=== PATIENT | female | born 1990 | race Caucasian/White ===

== ENCOUNTER → 2016-11-04 | Outpatient (CLI) | payer OTHER ==
--- NOTE | 2016-11-05 03:08 | REP ---
Clinical: Anatomical evaluation. Comparison: 10/08/2016 . Findings: Examination demonstrates a single live intrauterine in cephalic presentation. motion is identified by technologist. Placenta is noted anteriorly and grade zero without evidence for placenta previa or abruption. Amniotic fluid volume is normal. Cervix measures 3.2 cm in length and appears closed. No evidence for nuchal cord. Gestational age by LMP 24 weeks 0 days with PATRICIA 02/24/2017 . Gestational age by current measurements 24 weeks 4 days with PATRICIA 02/20/2017 . FHR equals 133 beats per minute. Estimated weight 677 grams ( 52nd percentile). Anatomical assessment demonstrates normal structures including cranium, choroid plexus, cavum, cerebellum/posterior fossa, facial features, lungs, four-chamber heart/ventricular outflow tracts, diaphragm, stomach, cord insertion/three-vessel cord, kidneys/bladder, and extremities. Impression: Single live intrauterine in cephalic presentation demonstrating appropriate interval growth. In conjunction with prior examination anatomical assessment is complete and normal. Signed by Julian Estes MD 11/05/2016 03:00 A
== END ==
LOC: M RAD 10:58
PROVIDERS: ATTEND Obstetrics & Gynecology
DX: Z36 Encounter for antenatal screening of mother (principal); Z3A.24 24 weeks gestation of pregnancy

== ENCOUNTER → 2016-12-04 | Outpatient (CLI) | payer OTHER ==
[2016-12-04 15:18] LABS: MEAN CORPUSCULAR HGB CONC 34.5 g/dl (32.0-36.5); MEAN CORPUSCULAR VOLUME 95.7 fl (80.0-96.0); RED CELL DISTRIBUTION WIDTH 13.1 % (11.5-14.5)
[2016-12-05 08:16] LABS: WHITE BLOOD COUNT 9.6 K/mm3 (4.0-10.0)
== END ==
LOC: M LAB 13:30
PROVIDERS: ATTEND Obstetrics & Gynecology
DX: Z34.02 Encounter for supervision of normal first pregnancy, second trimester (principal)

== ENCOUNTER → 2016-12-19 | Outpatient (REF) | payer OTHER | LOC: M SFHCLERA 10:39 | PROVIDERS: ATTEND Physician Assistant | DX: J02.9 Acute pharyngitis, unspecified (principal) ==

== ENCOUNTER → 2017-01-15 | Outpatient (CLI) | payer OTHER ==
[~2017-01-15] MED LIST: PRENTAB9 PO
[2017-01-15 17:46] LABS: ALT/SGPT 89 U/L (12-78); AST/SGOT 53 U/L (15-37); BILIRUBIN,TOTAL 0.8 MG/DL (0.2-1.0); CREATININE FOR GFR 0.57 MG/DL (0.55-1.02); GLOMERULAR FILTRATION RATE > 60.0 (>60); URIC ACID 5.5 MG/DL (2.6-6.0)
[2017-01-15 18:01] LABS: MEAN CORPUSCULAR HEMOGLOBIN 34.1 pg (27.0-33.0); MEAN CORPUSCULAR VOLUME 93.3 fl (80.0-96.0); RED CELL DISTRIBUTION WIDTH 12.7 % (11.5-14.5); WHITE BLOOD COUNT 9.6 K/mm3 (4.0-10.0)
[2017-01-15 20:29] LABS: MEAN CORPUSCULAR HGB CONC 34.4 g/dl (32.0-36.5)
== END ==
LOC: M LAB 16:35
PROVIDERS: ATTEND Advanced Practice Midwife
DX: R03.0 Elevated blood-pressure reading, without diagnosis of hypertension (principal)

== ENCOUNTER 2017-01-16 10:46 | Inpatient (IN) | payer OTHER ==
[~2017-01-16] VITALS: Ht 162.6 cm; Wt 100.0 kg
[2017-01-16] MEDS ORDERED: ONDANSETRON 4MG/2ML VIAL (J2405) IV PRN (11:30)
[2017-01-16] MEDS ORDERED: PRENTAB9 PO (11:35)
[2017-01-16] MEDS: LR 1,000 ML IV SCH ×2 (12:23→21:36)
[2017-01-16 12:48] LABS: BASO % 0.3 % (0.0-1.0); EOS # 0.1 K/mm3 (0.0-0.50); EOS % 1.4 % (0.0-3.0); LARGE UNSTAINED CELL # 0.1 K/mm3 (0.0-0.4); LARGE UNSTAINED CELL % 1.7 % (0.0-4.0); LYMPH # 1.5 K/mm3 (1.5-6.5); LYMPH % 18.7 % (24.0-44.0); MEAN CORPUSCULAR HEMOGLOBIN 33.1 pg (27.0-33.0); MEAN CORPUSCULAR VOLUME 94.8 fl (80.0-96.0); MONO # 0.5 K/mm3 (0.0-0.8); MONO % 5.9 % (0.0-5.0); NEUTROPHILS # 5.8 K/mm3 (1.8-7.7); PLATELET COUNT, AUTOMATED 114 k/mm3 (150-450); RED CELL DISTRIBUTION WIDTH 12.9 % (11.5-14.5)
[2017-01-16 12:49] VITALS: BP 102/55
[2017-01-16 13:25] LABS: ALBUMIN 2.7 GM/DL (3.2-5.2); ALBUMIN/GLOBULIN RATIO 0.75 (1.00-1.93); ALKALINE PHOSPHATASE 131 U/L (45-117); ALT/SGPT 101 U/L (12-78); AMYLASE 47 U/L (25-115); ANION GAP 7 MEQ/L (8-16); AST/SGOT 63 U/L (15-37); BILIRUBIN,TOTAL 0.4 MG/DL (0.2-1.0); BLOOD UREA NITROGEN 4 MG/DL (7-18); CARBON DIOXIDE LEVEL 25 MEQ/L (21-32); CHLORIDE LEVEL 108 MEQ/L (98-107); GLOMERULAR FILTRATION RATE > 60.0 (>60); GLUCOSE, FASTING 104 MG/DL (70-105); POTASSIUM SERUM 3.8 MEQ/L (3.5-5.1); SODIUM LEVEL 140 MEQ/L (136-145); TOTAL PROTEIN 6.3 GM/DL (6.4-8.2); URIC ACID 5.6 MG/DL (2.6-6.0)
[2017-01-16 14:30] VITALS: BP 107/58
[2017-01-16] MEDS ORDERED: BICITRA 30ML SOLN UDC PO ONE (17:15)
[2017-01-16] MEDS ORDERED: BETAMETHASONE SOLUSPAN 6MG/ML INJ 5ML (J0702) IM SCH (17:45)
--- NOTE | 2017-01-16 18:13 | HPEPDOC ---
Obstetrical History & Physical General Date of Admission Primary Care Physician: Gaetano Briceño DO History of Present Illness Patient is a 26-year-old female who is a at 34 weeks 3 days gestation with an PATRICIA of 02/24/2017 aced off of a first trimester ultrasound. She [facility] care in her first [facility]. Her has been uncomplicated up until 34 weeks' gestation when she presented to the office with a blood pressure of 144/82 and symptoms of epigastric pain mainly on the left side along with headaches. Patient also reported that she had been vomiting for the last 2-3 days and also had consistent nausea. At that point preeclamptic labs along with a 24-hour urine was done for patient and she reported back to the office 2 days later with a normal blood pressure but abnormal labs. Patient was sent to labor and delivery for further testing. She still continues to complain of left upper quadrant pain along with headaches. She denies leaking of fluid, vaginal bleeding, or contractions. Reports active movement. Chief Complaint: Other (left upper quadrant pain, nausea, headaches) Information Provided By: Patient Age: 26 : 1 Livin Care Care: Good Care Dating Final EDC: February 24, 2017 Final EDC by: 1st trimester (US) LMP: Apr 06, 2016 EGA at Admission: 34.3 Antepartum Course Height (inches): 64 Pre- weight (lbs.): 209 Admission Weight (lbs.): 220 Change in Weight (lbs.): 11 Past Medical History Past Obstetrical History : Past Obstetrical History: Primgravida LAWN CARE SPECIALIST History: Other (PCOS.) Past Medical History Medical History Varicella-zoster child. Surgical History: Other (surgery and right eye is child.) Family History Significant Family History: Hyperlipidemia Social History Marital Status: Single Family situation: Spouse/partner home Psychosocial History: No pertinent psych hx * Smoker: former Smoker Alcohol: other (history of alcohol abuse) Drugs: denies, marijuana (history of use) Abuse Violence Screening Have you been hit/kicked/slapp: No Have you been sexually assault: No Allergies Coded Allergies: Latex (Verified Allergy, Unknown, 07/09/14) Medications Scheduled Multivitamins/ ( 27-0.8 mg) 1 Tab Tab 1 TAB PO DAILY Physical Examination Physical Examination GENERAL: Alert and oriented times three. BREAST: . ABDOMEN: Gravid and non-tender to touch. FETUS: Is vertex (VTX) by sterile vaginal examination (SVE), fetus is vertex ( VTX) by David. HEART RATE: Regular rate and rhythm. LUNGS: Clear to auscultation (CTA). EXTREMITIES: No edema. No clonus. Deep tendon reflexes (DTRs) + [3]. Vital Signs/I&O Vital Signs Date Time Temp Pulse Resp B/P Pulse Ox O2 Delivery O2 Flow Rate FiO2 01/16/17 14:30 71 18 107/58 01/16/17 11:27 99.2 Room Air Laboratory Data 24H LABS Laboratory Tests 2 01/16/17 12:25: Blood Urea Nitrogen 4L, Creatinine 0.60, Sodium Level 140, Potassium Level 3.8, Chloride Level 108H, Carbon Dioxide Level 25, Calcium Level 9.0, Aspartate Amino Transf (AST/SGOT) 63H, Alanine Aminotransferase (ALT/SGPT) 101H, Alkaline Phosphatase 131H, Total Bilirubin 0.4, Uric Acid 5.6, Total Protein 6.3L, Albumin 2.7L, Albumin/Globulin Ratio 0.75L, Amylase Level 47, Anion Gap 7L, White Blood Count 8.0, Red Blood Count 4.30, Hemoglobin 14.3, Hematocrit 40.8, Mean Corpuscular Volume 94.8, Mean Corpuscular Hemoglobin 33.1H, Mean Corpuscular Hemoglobin Concent 35.0, Red Cell Distribution Width 12.9, Platelet Count 114L, Neutrophils (%) (Auto) 72.0H, Lymphocytes (%) (Auto) 18.7L, Monocytes (%) (Auto) 5.9H, Eosinophils (%) (Auto) 1.4, Basophils (%) (Auto) 0.3 , Neutrophils # (Auto) 5.8, Lymphocytes # (Auto) 1.5, Monocytes # (Auto) 0.5, Eosinophils # (Auto) 0.1, Basophils # (Auto) 0.0, Glomerular Filtration Rate > 60.0, Large Unclassified Cells # 0.1, Large Unclassified Cells % 1.7, Lipase 116 , Urine Random Creatinine 63.7, Urine Random Total Protein 7.7 CBC/BMP Laboratory Tests 01/16/17 12:25 Calcium Level 9.0, Aspartate Amino Transf (AST/SGOT) 63 H, Alanine Aminotransferase (ALT/SGPT) 101 H, Alkaline Phosphatase 131 H, Total Bilirubin 0.4, Uric Acid 5.6, Total Protein 6.3 L, Albumin 2.7 L, Red Blood Count 4.30, Mean Corpuscular Volume 94.8, Mean Corpuscular Hemoglobin 33.1 H, Mean Corpuscular Hemoglobin Concent 35.0, Red Cell Distribution Width 12.9, Neutrophils (%) (Auto) 72.0 H, Lymphocytes (%) (Auto) 18.7 L, Monocytes (%) ( Auto) 5.9 H, Eosinophils (%) (Auto) 1.4, Basophils (%) (Auto) 0.3, Neutrophils # (Auto) 5.8, Lymphocytes # (Auto) 1.5, Monocytes # (Auto) 0.5, Eosinophils # ( Auto) 0.1, Basophils # (Auto) 0.0 Urine Culture: No Growth Pertinent Laboratoy Data Blood Type: O+ RBC Antibody Screen: Negative HIV: Negative Hepatitis B: Negative Rapid Plasma Reagin: Nonreactive Rubella: Immune Chlamydia/Gonorrhea: Negative Group B Streptococcus: Unknown Quad Screen Test: Declined Cystic Fibrosis: Declined Glucose Tolerance Test: 95 (PLT: 136) Steroid Therapy Steroid Therapy: Yes Date #1: Jan 16, 2017 Date #2: Jan 17, 2017 Tocometer Multi-drug resistant Organism: No history of MDRO Assessment/Plan Assessment IUP at 34 weeks 3 days gestation Thrombocytopenia Abnormal liver enzymes Category 1 heart rate tracing Plan Patient to be 23 hour observation. IV started with lactated Ringer's at 125. Out of bed as tolerated. Regular diet. Labs as ordered. Labs and information reviewed with Dr. Briceño. Plan is to continue observation with patient and repeat labs in 24 hours. We'll start betamethasone IM injections 1 now and 1 in 24 hours. GBS obtained. NST every 8 hours. Vital signs every 4 hours. DENILSON BARBA CNM Jan 16, 2017 18:06
[2017-01-16 20:05] VITALS: BP 133/75
[2017-01-16] MEDS ORDERED: ACETAMINOPHEN 500 MG TAB PO PRN (22:30)
[2017-01-16] MEDS: FAMOTIDINE 20 MG TAB PO SCH (22:50)
[2017-01-17] VITALS (7 sets, daily range): BP systolic 110–137; BP diastolic 51–85
[2017-01-17] MEDS: LR 1,000 ML IV SCH ×3 (03:21→18:33)
[2017-01-17] MEDS ORDERED: BETAMETHASONE SOLUSPAN 6MG/ML INJ 5ML (J0702) IM SCH (08:00)
[2017-01-17 08:38] LABS: ALBUMIN 2.3 GM/DL (3.2-5.2); ALBUMIN/GLOBULIN RATIO 0.68 (1.00-1.93); ALKALINE PHOSPHATASE 110 U/L (45-117); ALT/SGPT 100 U/L (12-78); ANION GAP 10 MEQ/L (8-16); AST/SGOT 51 U/L (15-37); BILIRUBIN,TOTAL 0.5 MG/DL (0.2-1.0); BLOOD UREA NITROGEN 4 MG/DL (7-18); CARBON DIOXIDE LEVEL 21 MEQ/L (21-32); CHLORIDE LEVEL 111 MEQ/L (98-107); CREATININE FOR GFR 0.45 MG/DL (0.55-1.02); GLOMERULAR FILTRATION RATE > 60.0 (>60); GLUCOSE, FASTING 99 MG/DL (70-105); POTASSIUM SERUM 3.8 MEQ/L (3.5-5.1); SODIUM LEVEL 142 MEQ/L (136-145); TOTAL PROTEIN 5.7 GM/DL (6.4-8.2); URIC ACID 5.2 MG/DL (2.6-6.0)
[2017-01-17 08:40] LABS: MEAN CORPUSCULAR HEMOGLOBIN 33.2 pg (27.0-33.0); MEAN CORPUSCULAR HGB CONC 35.3 g/dl (32.0-36.5); MEAN CORPUSCULAR VOLUME 94.1 fl (80.0-96.0); RED CELL DISTRIBUTION WIDTH 12.6 % (11.5-14.5); WHITE BLOOD COUNT 11.6 K/mm3 (4.0-10.0)
[2017-01-17] MEDS: FAMOTIDINE 20 MG TAB PO SCH ×2 (09:19→21:08)
[2017-01-18] VITALS (10 sets, daily range): BP systolic 103–124; BP diastolic 55–70
[2017-01-18 06:31] LABS: MEAN CORPUSCULAR HEMOGLOBIN 33.3 pg (27.0-33.0); MEAN CORPUSCULAR HGB CONC 34.7 g/dl (32.0-36.5); MEAN CORPUSCULAR VOLUME 95.8 fl (80.0-96.0); WHITE BLOOD COUNT 10.8 K/mm3 (4.0-10.0)
[2017-01-18] MEDS: LR 1,000 ML IV SCH ×3 (06:39→19:30)
[2017-01-18] MEDS: FAMOTIDINE 20 MG TAB PO SCH ×2 (07:33→23:59)
--- NOTE | 2017-01-18 08:57 | REP ---
GALLBLADDER ULTRASOUND: 01/18/2017. Clinical history: Upper abdominal epigastric pain. 34 weeks . Sonographic evaluation of the right upper quadrant shows the liver homogeneous without focal hepatic mass, intrahepatic biliary dilatation nor adjacent ascites. Gallbladder adequately filled with some layering sludge visible but no stone. There is no mass, wall thickening or pericholecystic fluid. Wall measured 2.4 mm. Common duct is 3.6 mm without a filling defect or dilatation. Pancreas is obscured by extensive gas shadowing. Right kidney is 11.5 x 6 x 6.2 cm with mild to moderate hydronephrosis most likely hydronephrosis of . No generalized ascites. heart rate was recorded during the examination at 171. Impression: 1. Some gallbladder sludge without stone, wall thickening or pericholecystic fluid. No sonographic Dahl sign. 2. Liver, common bile duct at 3.6 mm but were intact and the right kidney shows mild to moderate hydronephrosis, likely secondary to . No echogenic foci seen in the kidney to suggest a stone. Signed by Surya Ovalles MD 01/18/2017 08:18 P
[2017-01-18 11:40] LABS: ALT/SGPT 155 U/L (12-78); AST/SGOT 78 U/L (15-37); CREATININE FOR GFR 0.67 MG/DL (0.55-1.02); GLOMERULAR FILTRATION RATE > 60.0 (>60)
[2017-01-18 11:41] LABS: BILIRUBIN,TOTAL 0.2 MG/DL (0.2-1.0); URIC ACID 5.2 MG/DL (2.6-6.0)
[2017-01-18] MEDS ORDERED: LR 1,000 ML IV SCH (20:27)
[2017-01-18] MEDS ORDERED: miSOPROStol 50 MCG 1/2 TAB (S0191) PO ONE (20:30)
[2017-01-18 22:07] LABS: BASO % 0.2 % (0.0-1.0); EOS # 0.1 K/mm3 (0.0-0.50); LARGE UNSTAINED CELL # 0.2 K/mm3 (0.0-0.4); LARGE UNSTAINED CELL % 1.4 % (0.0-4.0); LYMPH # 2.4 K/mm3 (1.5-6.5); LYMPH % 22.1 % (24.0-44.0); MEAN CORPUSCULAR HEMOGLOBIN 32.8 pg (27.0-33.0); MEAN CORPUSCULAR HGB CONC 34.1 g/dl (32.0-36.5); MEAN CORPUSCULAR VOLUME 96.3 fl (80.0-96.0); MONO # 0.9 K/mm3 (0.0-0.8); MONO % 8.7 % (0.0-5.0); NEUTROPHILS # 6.8 K/mm3 (1.8-7.7); NEUTROPHILS % 66.6 % (36.0-66.0); RED CELL DISTRIBUTION WIDTH 13.2 % (11.5-14.5); WHITE BLOOD COUNT 10.2 K/mm3 (4.0-10.0)
[2017-01-18 22:08] LABS: PLATELET COUNT, AUTOMATED 90 k/mm3 (150-450)
[2017-01-18 22:24] LABS: ALT/SGPT 176 U/L (12-78); AST/SGOT 91 U/L (15-37); BILIRUBIN,TOTAL 0.2 MG/DL (0.2-1.0); CREATININE FOR GFR 0.47 MG/DL (0.55-1.02); GLOMERULAR FILTRATION RATE > 60.0 (>60); URIC ACID 4.7 MG/DL (2.6-6.0)
[2017-01-19] VITALS (49 sets, daily range): BP systolic 77–131; BP diastolic 44–80
[2017-01-19] MEDS: miSOPROStol 50 MCG 1/2 TAB (S0191) PO SCH ×2 (01:14→05:32)
[2017-01-19 02:15] LABS: BASO % 0.4 % (0.0-1.0); EOS # 0.1 K/mm3 (0.0-0.50); EOS % 1.1 % (0.0-3.0); LARGE UNSTAINED CELL # 0.1 K/mm3 (0.0-0.4); LARGE UNSTAINED CELL % 1.2 % (0.0-4.0); LYMPH # 2.4 K/mm3 (1.5-6.5); LYMPH % 23.2 % (24.0-44.0); MEAN CORPUSCULAR HEMOGLOBIN 33.6 pg (27.0-33.0); MEAN CORPUSCULAR HGB CONC 34.5 g/dl (32.0-36.5); MEAN CORPUSCULAR VOLUME 97.3 fl (80.0-96.0); MONO # 0.8 K/mm3 (0.0-0.8); NEUTROPHILS # 6.5 K/mm3 (1.8-7.7); NEUTROPHILS % 66.1 % (36.0-66.0); PLATELET COUNT, AUTOMATED 94 k/mm3 (150-450); RED CELL DISTRIBUTION WIDTH 13.3 % (11.5-14.5); WHITE BLOOD COUNT 9.8 K/mm3 (4.0-10.0)
[2017-01-19 02:39] LABS: ALT/SGPT 183 U/L (12-78); AST/SGOT 98 U/L (15-37); BILIRUBIN,TOTAL 0.3 MG/DL (0.2-1.0); CREATININE FOR GFR 0.42 MG/DL (0.55-1.02); GLOMERULAR FILTRATION RATE > 60.0 (>60); URIC ACID 4.8 MG/DL (2.6-6.0)
[2017-01-19] MEDS ORDERED: BUTORPHANOL 2 MG/ML INJ (J0595) IV ONE (04:30)
[2017-01-19] MEDS ORDERED: PROMETHAZINE INJ 25 MG/ML VIAL (J2550) IV ONE (04:30)
[2017-01-19 06:22] LABS: ALT/SGPT 199 U/L (12-78); AST/SGOT 104 U/L (15-37); BASO % 0.3 % (0.0-1.0); BILIRUBIN,TOTAL 0.3 MG/DL (0.2-1.0); CREATININE FOR GFR 0.39 MG/DL (0.55-1.02); EOS # 0.1 K/mm3 (0.0-0.50); GLOMERULAR FILTRATION RATE > 60.0 (>60); LARGE UNSTAINED CELL # 0.1 K/mm3 (0.0-0.4); LARGE UNSTAINED CELL % 1.2 % (0.0-4.0); LYMPH # 2.6 K/mm3 (1.5-6.5); LYMPH % 22.6 % (24.0-44.0); MEAN CORPUSCULAR HEMOGLOBIN 32.7 pg (27.0-33.0); MEAN CORPUSCULAR HGB CONC 33.8 g/dl (32.0-36.5); MONO # 0.8 K/mm3 (0.0-0.8); MONO % 7.4 % (0.0-5.0); NEUTROPHILS # 7.4 K/mm3 (1.8-7.7); NEUTROPHILS % 67.6 % (36.0-66.0); PLATELET COUNT, AUTOMATED 104 k/mm3 (150-450); RED CELL DISTRIBUTION WIDTH 13.3 % (11.5-14.5); URIC ACID 4.8 MG/DL (2.6-6.0); WHITE BLOOD COUNT 10.9 K/mm3 (4.0-10.0)
[2017-01-19 10:05] LABS: BASO % 0.4 % (0.0-1.0); EOS # 0.1 K/mm3 (0.0-0.50); EOS % 1.1 % (0.0-3.0); LARGE UNSTAINED CELL # 0.1 K/mm3 (0.0-0.4); LYMPH # 2.2 K/mm3 (1.5-6.5); LYMPH % 19.5 % (24.0-44.0); MEAN CORPUSCULAR HGB CONC 34.2 g/dl (32.0-36.5); MEAN CORPUSCULAR VOLUME 96.5 fl (80.0-96.0); MONO # 0.8 K/mm3 (0.0-0.8); MONO % 7.3 % (0.0-5.0); NEUTROPHILS # 7.6 K/mm3 (1.8-7.7); NEUTROPHILS % 70.8 % (36.0-66.0); PLATELET COUNT, AUTOMATED 105 k/mm3 (150-450); RED CELL DISTRIBUTION WIDTH 13.3 % (11.5-14.5); WHITE BLOOD COUNT 10.7 K/mm3 (4.0-10.0)
[2017-01-19] MEDS ORDERED: OXYTOCIN 30 UNITS IN 0.9% NaCl 500ML IV BAG (J2590) As Ordered ONE (10:22)
[2017-01-19 10:34] LABS: ALT/SGPT 235 U/L (12-78); AST/SGOT 125 U/L (15-37); BILIRUBIN,TOTAL 0.5 MG/DL (0.2-1.0); CREATININE FOR GFR 0.48 MG/DL (0.55-1.02); GLOMERULAR FILTRATION RATE > 60.0 (>60); URIC ACID 5.1 MG/DL (2.6-6.0)
[2017-01-19] MEDS ORDERED: FENTANYL 2MCG/ML ROPIVACAINE 0.2% IN 0.9% NACL 200ML IVBAG As Ordered ONE (10:43)
[2017-01-19] MEDS ORDERED: ePHEDrine SULFATE 25 MG/5 ML(5MG/ML) SYRINGE As Ordered ONE (11:38)
[2017-01-19] MEDS ORDERED: LR 1,000 ML IV SCH (11:57)
[2017-01-19] MEDS ORDERED: MAGNESIUM *L&D* 4 GM/100 ML BAG (40MG/ML) (J3475) As Ordered ONE (11:57)
[2017-01-19] MEDS ORDERED: MAG Sulf (OBGYN) 20GM/500ML 20,000 MG in APPROPRIATE DILUENT 1 EA IV SCH ×2 (11:57→22:30)
[2017-01-19] MEDS ORDERED: MAGNESIUM SULFATE 4% INJ 20GM/500ML (40MG/ML) (J3475) As Ordered ONE (11:57)
[2017-01-19] MEDS ORDERED: diphenhydrAMINE INJ 50MG/ML VIAL (J1200) IV PRN (12:00)
[2017-01-19] MEDS ORDERED: NALOXONE INJ 0.4 MG/1 ML VIAL (J2310) IV PRN ×3 (12:00→21:33)
[2017-01-19] MEDS ORDERED: EPIDURAL COMMENT XX SCH (12:00)
[2017-01-19] MEDS ORDERED: ePHEDrine SULFATE 25 MG/5 ML(5MG/ML) SYRINGE IV PRN (12:00)
[2017-01-19] MEDS ORDERED: FENTANYL/ROPIVACAINE/NACL BAG 200 ML EPIDURAL SCH (12:00)
[2017-01-19] MEDS ORDERED: LACTATED RINGER'S 1000 ML IV PRN (12:00)
[2017-01-19] MEDS ORDERED: EPIDURAL/PCA KEYS XX PRN (12:00)
[2017-01-19] MEDS ORDERED: MAG Sulf (L&D) 4 GM/100 ML 4 GM in APPROPRIATE DILUENT 1 EA IV ONE (12:00)
[2017-01-19] MEDS ORDERED: REFRIGERATOR IV KEYS XX PRN (12:00)
[2017-01-19 14:15] LABS: BASO % 0.1 % (0.0-1.0); EOS % 0.3 % (0.0-3.0); LARGE UNSTAINED CELL # 0.1 K/mm3 (0.0-0.4); LARGE UNSTAINED CELL % 1.1 % (0.0-4.0); LYMPH # 1.5 K/mm3 (1.5-6.5); MEAN CORPUSCULAR HEMOGLOBIN 33.5 pg (27.0-33.0); MEAN CORPUSCULAR HGB CONC 34.8 g/dl (32.0-36.5); MEAN CORPUSCULAR VOLUME 96.2 fl (80.0-96.0); MONO # 0.8 K/mm3 (0.0-0.8); MONO % 7.3 % (0.0-5.0); NEUTROPHILS # 9.1 K/mm3 (1.8-7.7); NEUTROPHILS % 79.2 % (36.0-66.0); RED CELL DISTRIBUTION WIDTH 13.1 % (11.5-14.5); WHITE BLOOD COUNT 11.5 K/mm3 (4.0-10.0)
[2017-01-19 14:20] LABS: PLATELET COUNT, AUTOMATED 103 k/mm3 (150-450)
[2017-01-19 15:00] LABS: ALT/SGPT 257 U/L (12-78); AST/SGOT 146 U/L (15-37); BILIRUBIN,TOTAL 0.6 MG/DL (0.2-1.0); CREATININE FOR GFR 0.45 MG/DL (0.55-1.02); GLOMERULAR FILTRATION RATE > 60.0 (>60); URIC ACID 5.4 MG/DL (2.6-6.0)
[2017-01-19 18:06] LABS: BASO % 0.2 % (0.0-1.0); EOS % 0.4 % (0.0-3.0); LARGE UNSTAINED CELL # 0.1 K/mm3 (0.0-0.4); LARGE UNSTAINED CELL % 0.8 % (0.0-4.0); LYMPH # 1.5 K/mm3 (1.5-6.5); LYMPH % 12.7 % (24.0-44.0); MEAN CORPUSCULAR HGB CONC 34.5 g/dl (32.0-36.5); MEAN CORPUSCULAR VOLUME 95.6 fl (80.0-96.0); MONO # 0.8 K/mm3 (0.0-0.8); MONO % 6.8 % (0.0-5.0); NEUTROPHILS # 9.2 K/mm3 (1.8-7.7); NEUTROPHILS % 79.2 % (36.0-66.0); PLATELET COUNT, AUTOMATED 100 k/mm3 (150-450); RED CELL DISTRIBUTION WIDTH 13.1 % (11.5-14.5); WHITE BLOOD COUNT 11.6 K/mm3 (4.0-10.0)
[2017-01-19 18:32] LABS: ALT/SGPT 297 U/L (12-78); AST/SGOT 177 U/L (15-37); BILIRUBIN,TOTAL 0.8 MG/DL (0.2-1.0); CREATININE FOR GFR 0.52 MG/DL (0.55-1.02); GLOMERULAR FILTRATION RATE > 60.0 (>60); URIC ACID 5.7 MG/DL (2.6-6.0)
[2017-01-19] MEDS ORDERED: BICITRA 30ML SOLN UDC As Ordered ONE (20:43)
[2017-01-19] MEDS ORDERED: BICITRA 30ML SOLN UDC PO ONE (20:45)
[2017-01-19] MEDS ORDERED: OXYTOCIN INJ 10 UNITS/ML VIAL (J2590) As Ordered ONE (21:28)
[2017-01-19] MEDS ORDERED: KETOROLAC 60 MG/2 ML VIAL (J1885) As Ordered ONE (21:28)
[2017-01-19] MEDS ORDERED: ONDANSETRON 4MG/2ML VIAL (J2405) As Ordered ONE (21:28)
[2017-01-19] MEDS ORDERED: MORPHINE PRES-FREE INJ 10 MG/10 ML VIAL (J2274) As Ordered ONE (21:29)
[2017-01-19] MEDS ORDERED: METOCLOPRAMIDE INJ 10MG/2ML VIAL (J2765) IV PRN ×2 (21:33→22:15)
[2017-01-19] MEDS ORDERED: NALBUPHINE HCL 10 MG/ML AMP (J2300) IV PRN (21:33)
[2017-01-19] MEDS ORDERED: fentaNYL 100 MCG/2 ML INJECTION (J3010) As Ordered ONE (21:38)
[2017-01-19 21:51] LABS: CORD GAS ABE A -2.3; CORD GAS HCO3 A 23.6 MEQ/L; CORD GAS O2 SAT A 67.2 %; CORD GAS PCO2 A 44.8 mmHg; CORD GAS PH A 7.34 UNITS; CORD GAS PO2 A 27.6 mmHg; CORD GAS SBC A 21.8 MEQ/L
[2017-01-19 21:52] LABS: CORD GAS ABE V -6.2; CORD GAS HCO3 V 17.3 MEQ/L; CORD GAS O2 SAT V 87.5 %; CORD GAS PCO2 V 29.3 mmHg; CORD GAS PH V 7.389 UNITS; CORD GAS PO2 V 43.6 mmHg; CORD GAS SBC V 19.2 MEQ/L; CORD GAS TCO2 V 18.2 MEQ/L
[2017-01-19] MEDS: LR 1,000 ML IV SCH (22:06)
[2017-01-19] MEDS ORDERED: METHYLERGONOVINE MALEATE 0.2 MG TAB PO PRN (22:15)
[2017-01-19] MEDS ORDERED: NORCO, ANEXSIA 5/325MG TABLET (HYDROcodone/ACETAMINOPHEN) PO PRN (22:15)
[2017-01-19] MEDS ORDERED: ONDANSETRON 4MG/2ML VIAL (J2405) IV PRN ×2 (22:15)
[2017-01-19] MEDS ORDERED: PERCOCET 5MG/325MG TAB PO PRN (22:15)
[2017-01-19] MEDS ORDERED: MOM 30ML SUSPENSION UDC PO PRN (22:15)
[2017-01-19] MEDS ORDERED: MEASLES,MUMPS,RUBELLA VACCINE INJ (MMR-II) (90707) SC SCH (22:15)
[2017-01-19] MEDS ORDERED: MEPERIDINE INJ 25 MG/ML VIAL (J2175) IV PRN (22:15)
[2017-01-19] MEDS ORDERED: PROMETHAZINE INJ 25 MG/ML VIAL (J2550) IV PRN (22:15)
[2017-01-19] MEDS ORDERED: RHOGAM 300 MCG (1500 IU) INJ (J2790) IM SCH (22:15)
[2017-01-19] MEDS ORDERED: fentaNYL 100 MCG/2 ML INJECTION (J3010) IV PRN (22:15)
[2017-01-19] MEDS ORDERED: CALCIUM GLUCONATE 1,000 MG in D5W MINI-BAG PLUS 100 ML IV PRN (22:30)
[2017-01-20] VITALS (22 sets, daily range): BP systolic 93–123; BP diastolic 50–74
[2017-01-20] MEDS: IBUPROFEN 800 MG TAB PO SCH ×3 (06:43→22:58)
[2017-01-20 07:16] LABS: MEAN CORPUSCULAR HGB CONC 35.4 g/dl (32.0-36.5); MEAN CORPUSCULAR VOLUME 93.2 fl (80.0-96.0); WHITE BLOOD COUNT 12.5 K/mm3 (4.0-10.0)
[2017-01-20 07:36] LABS: ALT/SGPT 322 U/L (12-78); AST/SGOT 190 U/L (15-37); BILIRUBIN,TOTAL 0.7 MG/DL (0.2-1.0); CREATININE FOR GFR 0.56 MG/DL (0.55-1.02); GLOMERULAR FILTRATION RATE > 60.0 (>60); URIC ACID 5.8 MG/DL (2.6-6.0)
[2017-01-20 07:53] LABS: MAGNESIUM LEVEL 5.1 MG/DL (1.8-2.4)
[2017-01-20] MEDS ORDERED: MAG Sulf (OBGYN) 20GM/500ML 20,000 MG in APPROPRIATE DILUENT 1 EA IV SCH (08:30)
--- NOTE | 2017-01-20 08:33 | RO ---
DATE OF PROCEDURE: 01/19/2017 PREOPERATIVE DIAGNOSES: 1. Intrauterine at 34-6/7 weeks gestation with HELLP syndrome. 2. Arrest of dilatation at 5 cm. 3. tachycardia. 4. Maternal temperature remote from delivery. POSTOPERATIVE DIAGNOSES: 1. Intrauterine at 34-6/7 weeks gestation with HELLP syndrome. 2. Arrest of dilatation at 5 cm. 3. tachycardia. 4. Maternal temperature remote from delivery. 5. Nuchal cord times one. PROCEDURE: Primary low transverse section via Pfannenstiel incision. SURGEON: Dr. Gaetano Briceño POLICY CANCELLATION CLERK: ANESTHESIA: Epidural. COMPLICATIONS: ESTIMATED BLOOD LOSS: 700 mL. FINDINGS: Live male infant with significant scalp molding. 7 and 9. weight 5 pounds 12 ounces. Normal appearing tubes and ovaries. Asiya is a 26-year-old female, 1, para 0, who was admitted to the hospital at 34 and 6/7 weeks gestation with preeclampsia. She progressed to severe preeclampsia with hemolysis, elevated liver enzymes and low platelet count (HELLP) syndrome. At this point, a decision was made to induce the patient. She underwent Cytotec followed by Pitocin and Auguste bulb induction. She progressed to 5 cm dilated, had an arrest of dilatation with tachycardia and maternal temperature and her liver function tests (LFTs) and platelets were getting worse. At this point, given that she was remote from delivery, a decision was made to proceed with a primary low transverse section. PROCEDURE: After obtaining informed consent, she was placed in a supine position. The patient was then draped and prepped in the usual sterile fashion. A Pfannenstiel incision was made with a first knife. This was carried down to the fascia. Fascia was incised in midline fashion and carried through laterally. Superior aspect of the fascia were then grasped with two Nabila clamps, tented off and dissected off of the rectus muscles sharply. The inferior aspect was dissected off in a similar fashion. Rectus muscles in midline fashion. Peritoneum identified. Peritoneal cavity entered bluntly. Superior and inferior dissection of the peritoneum was then done with good visualization of the bladder. At this point, a Mobius skin retractor was placed. A low-transverse uterine incision was made. Infant was delivered in atraumatic fashion. Nose and mouth bulb suctioned. Cord doubly clamped and cut. was handed over to the waiting seam sewer. Cord blood and cord gas was sent. Placenta removed manually. Uterus cleared of all clot and debris. Uterine incision was then repaired in two separate layers of #0 Vicryl sutures. Pelvis copiously irrigated with normal saline and suctioned out. Attention turned to the peritoneum which was closed in a running fashion using #2-0 Vicryl. Fascia closed in two separate segments of #0 Vicryl sutures. The skin was reapproximated in a subcuticular fashion using #3-0 Vicryl on a Yg. Steri-Strips placed. The patient tolerated the procedure well. She was then transferred to recovery room in stable condition.
[2017-01-20] MEDS: DOCUSATE SODIUM 100 MG CAP PO SCH ×2 (08:40→20:18)
[2017-01-20] MEDS: PRENATAL VITAMIN TAB PO SCH (08:40)
[2017-01-20] MEDS: NORCO, ANEXSIA 5/325MG TABLET (HYDROcodone/ACETAMINOPHEN) PO PRN ×3 (08:56→20:19)
--- NOTE | 2017-01-20 10:54 | IPNPDOC ---
Progress Note Date of Service The patient was seen on 01/20/17 at 10:34. Progress Note SUBJECTIVE: Patient reports that her pain is well managed. She states she has been pumping. Denies headache, visual changes, and epigastric pain. OBJECTIVE: PHYSICAL EXAMINATION: VITAL SIGNS: Please see below. LUNGS: Clear to auscultation. BREAST EXAMINATION: No-tender. Pumping. FUNDUS: Firm at U. Lochia scant bright red. SECTION INCISION: Dressing in place. No drainage present on dressing. EXTREMITIES: Bilateral lower extremities generalized edema with no pitting. 2+ reflexes. Sequential Compression Devices on bilateral lower extremities. INTAKE: see below OUTPUT: see below CURRENT LABS: Please see below. ASSESSMENT: Day 1 postoperative, preeclampsia, HELLP PLAN: Labs to be repeated at 1400 today. Magnesium was turned down to 1gm/hr at 0815. Dressing to be taken off, catheter to be out, and Magnesium to be turned off at 2100 today. VS, I&O, 24H, Fishbone Vital Signs/I&O Vital Signs Date Time Temp Pulse Resp B/P Pulse Ox O2 Delivery O2 Flow Rate FiO2 01/20/17 09:59 97.4 75 18 103/59 01/18/17 19:40 98 Room Air I&O- Last 24 Hours up to 6 AM 01/20/17 06:00 Intake Total 3752 ml Output Total 6050 ml Balance -2298 ml Laboratory Data 24H LABS Laboratory Tests 2 01/19/17 13:53: Creatinine 0.45L, Aspartate Amino Transf (AST/SGOT) 146H, Alanine Aminotransferase (ALT/SGPT) 257H, Lactate Dehydrogenase 157, Total Bilirubin 0.6 , Uric Acid 5.4, White Blood Count 11.5H, Red Blood Count 3.58L, Hemoglobin 12.0 , Hematocrit 34.4L, Mean Corpuscular Volume 96.2H, Mean Corpuscular Hemoglobin 33.5H, Mean Corpuscular Hemoglobin Concent 34.8, Red Cell Distribution Width 13.1, Platelet Count 103L, Neutrophils (%) (Auto) 79.2H, Lymphocytes (%) (Auto) 12.0L, Monocytes (%) (Auto) 7.3H, Eosinophils (%) (Auto) 0.3, Basophils (%) ( Auto) 0.1, Neutrophils # (Auto) 9.1H, Lymphocytes # (Auto) 1.5, Monocytes # ( Auto) 0.8, Eosinophils # (Auto) 0.0, Basophils # (Auto) 0.0, Glomerular Filtration Rate > 60.0, Large Unclassified Cells # 0.1, Large Unclassified Cells % 1.1 01/19/17 13:54: Magnesium Level 3.8H 01/19/17 17:47: Creatinine 0.52L, Aspartate Amino Transf (AST/SGOT) 177H, Alanine Aminotransferase (ALT/SGPT) 297H, Lactate Dehydrogenase 181, Total Bilirubin 0.8 , Uric Acid 5.7, White Blood Count 11.6H, Red Blood Count 3.69L, Hemoglobin 12.2 , Hematocrit 35.2L, Mean Corpuscular Volume 95.6, Mean Corpuscular Hemoglobin 33.0, Mean Corpuscular Hemoglobin Concent 34.5, Red Cell Distribution Width 13.1 , Platelet Count 100L, Neutrophils (%) (Auto) 79.2H, Lymphocytes (%) (Auto) 12.7L, Monocytes (%) (Auto) 6.8H, Eosinophils (%) (Auto) 0.4, Basophils (%) ( Auto) 0.2, Neutrophils # (Auto) 9.2H, Lymphocytes # (Auto) 1.5, Monocytes # ( Auto) 0.8, Eosinophils # (Auto) 0.0, Basophils # (Auto) 0.0, Glomerular Filtration Rate > 60.0, Large Unclassified Cells # 0.1, Large Unclassified Cells % 0.8 01/19/17 21:46: Cord Arterial Base Excess (Standard 21.8, Cord Arterial Bld Oxygen Saturation 67.2, Cord Arterial Blood Base Excess -2.3, Cord Arterial Blood HCO3 23.6, Cord Arterial Blood PCO2 44.8, Cord Arterial Blood PO2 27.6, Cord Arterial Blood Total CO2 25.0, Cord Arterial Blood pH 7.340, Cord Venous Base Excess (Actual) - 6.2, Cord Venous Base Excess (Standard) 19.2, Cord Venous Blood HCO3 17.3, Cord Venous Blood Oxygen Saturation 87.5, Cord Venous Blood PCO2 29.3, Cord Venous Blood PO2 43.6, Cord Venous Blood Total CO2 18.2, Cord Venous Blood pH 7.389 01/20/17 07:01: Creatinine 0.56, Aspartate Amino Transf (AST/SGOT) 190H, Alanine Aminotransferase (ALT/SGPT) 322H, Lactate Dehydrogenase 237, Total Bilirubin 0.7 , Uric Acid 5.8, Glomerular Filtration Rate > 60.0, Magnesium Level 5.1*H CBC/BMP Laboratory Tests 01/19/17 13:53 Aspartate Amino Transf (AST/SGOT) 146 H, Alanine Aminotransferase (ALT/SGPT) 257 H, Lactate Dehydrogenase 157, Total Bilirubin 0.6, Uric Acid 5.4, Red Blood Count 3.58 L, Mean Corpuscular Volume 96.2 H, Mean Corpuscular Hemoglobin 33.5 H , Mean Corpuscular Hemoglobin Concent 34.8, Red Cell Distribution Width 13.1, Neutrophils (%) (Auto) 79.2 H, Lymphocytes (%) (Auto) 12.0 L, Monocytes (%) ( Auto) 7.3 H, Eosinophils (%) (Auto) 0.3, Basophils (%) (Auto) 0.1, Neutrophils # (Auto) 9.1 H, Lymphocytes # (Auto) 1.5, Monocytes # (Auto) 0.8, Eosinophils # (Auto) 0.0, Basophils # (Auto) 0.0 01/19/17 17:47 Aspartate Amino Transf (AST/SGOT) 177 H, Alanine Aminotransferase (ALT/SGPT) 297 H, Lactate Dehydrogenase 181, Total Bilirubin 0.8, Uric Acid 5.7, Red Blood Count 3.69 L, Mean Corpuscular Volume 95.6, Mean Corpuscular Hemoglobin 33.0, Mean Corpuscular Hemoglobin Concent 34.5, Red Cell Distribution Width 13.1, Neutrophils (%) (Auto) 79.2 H, Lymphocytes (%) (Auto) 12.7 L, Monocytes (%) ( Auto) 6.8 H, Eosinophils (%) (Auto) 0.4, Basophils (%) (Auto) 0.2, Neutrophils # (Auto) 9.2 H, Lymphocytes # (Auto) 1.5, Monocytes # (Auto) 0.8, Eosinophils # (Auto) 0.0, Basophils # (Auto) 0.0 01/20/17 07:01 Aspartate Amino Transf (AST/SGOT) 190 H, Alanine Aminotransferase (ALT/SGPT) 322 H, Lactate Dehydrogenase 237, Total Bilirubin 0.7, Uric Acid 5.8, Red Blood Count 3.40 L, Mean Corpuscular Volume 93.2, Mean Corpuscular Hemoglobin 33.0, Mean Corpuscular Hemoglobin Concent 35.4, Red Cell Distribution Width 13.0 Microbiology Microbiology 01/16/17 Group B Streptococcus Screen (HAYDER) - Final, Complete DENILSON BARBA CNM Jan 20, 2017 10:54
[2017-01-20] MEDS: LR 1,000 ML IV SCH (11:41)
[2017-01-20 14:05] LABS: BASO % 0.2 % (0.0-1.0); EOS # 0.2 K/mm3 (0.0-0.50); EOS % 1.6 % (0.0-3.0); LARGE UNSTAINED CELL # 0.1 K/mm3 (0.0-0.4); LARGE UNSTAINED CELL % 1.4 % (0.0-4.0); LYMPH % 17.9 % (24.0-44.0); MEAN CORPUSCULAR HEMOGLOBIN 32.6 pg (27.0-33.0); MEAN CORPUSCULAR VOLUME 93.3 fl (80.0-96.0); MONO # 0.7 K/mm3 (0.0-0.8); MONO % 7.2 % (0.0-5.0); NEUTROPHILS # 7.3 K/mm3 (1.8-7.7); NEUTROPHILS % 71.6 % (36.0-66.0); PLATELET COUNT, AUTOMATED 121 k/mm3 (150-450); RED CELL DISTRIBUTION WIDTH 13.2 % (11.5-14.5); WHITE BLOOD COUNT 10.2 K/mm3 (4.0-10.0)
[2017-01-20 14:25] LABS: ALT/SGPT 276 U/L (12-78); AST/SGOT 151 U/L (15-37); BILIRUBIN,TOTAL 0.4 MG/DL (0.2-1.0); CREATININE FOR GFR 0.49 MG/DL (0.55-1.02); GLOMERULAR FILTRATION RATE > 60.0 (>60); MAGNESIUM LEVEL 4.1 MG/DL (1.8-2.4); URIC ACID 5.5 MG/DL (2.6-6.0)
[2017-01-21] VITALS (8 sets, daily range): BP systolic 89–128; BP diastolic 52–86
[2017-01-21] MEDS: NORCO, ANEXSIA 5/325MG TABLET (HYDROcodone/ACETAMINOPHEN) PO PRN ×4 (00:28→22:34)
[2017-01-21] MEDS: IBUPROFEN 800 MG TAB PO SCH ×3 (06:12→20:30)
[2017-01-21 07:08] LABS: MEAN CORPUSCULAR HEMOGLOBIN 32.9 pg (27.0-33.0); MEAN CORPUSCULAR HGB CONC 34.8 g/dl (32.0-36.5); MEAN CORPUSCULAR VOLUME 94.5 fl (80.0-96.0); RED CELL DISTRIBUTION WIDTH 13.3 % (11.5-14.5); WHITE BLOOD COUNT 9.2 K/mm3 (4.0-10.0)
[2017-01-21 07:19] LABS: ALT/SGPT 201 U/L (12-78); AST/SGOT 83 U/L (15-37); BILIRUBIN,TOTAL 0.3 MG/DL (0.2-1.0); CREATININE FOR GFR 0.48 MG/DL (0.55-1.02); GLOMERULAR FILTRATION RATE > 60.0 (>60); URIC ACID 5.4 MG/DL (2.6-6.0)
[2017-01-21] MEDS: PRENATAL VITAMIN TAB PO SCH (11:02)
[2017-01-21] MEDS: DOCUSATE SODIUM 100 MG CAP PO SCH ×2 (11:03→20:30)
--- NOTE | 2017-01-21 17:29 | IPNPDOC ---
Progress Note Date of Service The patient was seen on 01/21/17 at 17:23. Progress Note SUBJECTIVE: Patient states she is doing well. Reports pain has been managed. Denies headache, visual changes, or epigastric pain. Ambulating without difficulty. Voiding without difficulty. Patient continues to pump and attempting to breastfeed baby. OBJECTIVE: PHYSICAL EXAMINATION: VITAL SIGNS: Please see below. FUNDUS: Firm at U. Perineum: Scant lochia dark red. SECTION INCISION: Edges approximated, clean, dry, with no discharge. Steri-strips present. EXTREMITIES:bilateral lower extremities with generalized edema. Sequential Compression Devices on bilateral lower extremities. CURRENT LABS: Please see below. ASSESSMENT: Day 2 postoperative, HELLP, preeclampsia PLAN: Continue supportive nursing care. Labs ordered for 0600. Patient to report any signs or symptoms of preeclampsia. May remove sequentials during day but wear at night. Anticipate discharge tomorrow. VS, I&O, 24H, Fishbone Vital Signs/I&O Vital Signs Date Time Temp Pulse Resp B/P Pulse Ox O2 Delivery O2 Flow Rate FiO2 01/21/17 14:00 98.8 63 18 128/86 01/18/17 19:40 98 Room Air I&O- Last 24 Hours up to 6 AM 01/21/17 06:00 Intake Total 7906 ml Output Total 5300 ml Balance 2606 ml Laboratory Data 24H LABS Laboratory Tests 2 01/21/17 06:55: Creatinine 0.48L, Aspartate Amino Transf (AST/SGOT) 83H, Alanine Aminotransferase (ALT/SGPT) 201H, Lactate Dehydrogenase 217, Total Bilirubin 0.3 , Uric Acid 5.4, Glomerular Filtration Rate > 60.0 CBC/BMP Laboratory Tests 01/21/17 06:55 Aspartate Amino Transf (AST/SGOT) 83 H, Alanine Aminotransferase (ALT/SGPT) 201 H, Lactate Dehydrogenase 217, Total Bilirubin 0.3, Uric Acid 5.4, Red Blood Count 3.38 L, Mean Corpuscular Volume 94.5, Mean Corpuscular Hemoglobin 32.9, Mean Corpuscular Hemoglobin Concent 34.8, Red Cell Distribution Width 13.3 Microbiology Microbiology 01/16/17 Group B Streptococcus Screen (HAYDER) - Final, Complete DENILSON BARBA CNM Jan 21, 2017 17:29
[2017-01-22 02:07] VITALS: BP 121/68
[2017-01-22] MEDS: NORCO, ANEXSIA 5/325MG TABLET (HYDROcodone/ACETAMINOPHEN) PO PRN (05:54)
[2017-01-22] MEDS: IBUPROFEN 800 MG TAB PO SCH ×2 (05:54→13:26)
[2017-01-22 06:13] VITALS: BP 115/57
[2017-01-22 07:05] LABS: MEAN CORPUSCULAR HEMOGLOBIN 32.7 pg (27.0-33.0); MEAN CORPUSCULAR HGB CONC 34.7 g/dl (32.0-36.5); MEAN CORPUSCULAR VOLUME 94.1 fl (80.0-96.0); RED CELL DISTRIBUTION WIDTH 12.9 % (11.5-14.5)
[2017-01-22 07:22] LABS: ALT/SGPT 147 U/L (12-78); AST/SGOT 49 U/L (15-37); BILIRUBIN,TOTAL 0.3 MG/DL (0.2-1.0); CREATININE FOR GFR 0.51 MG/DL (0.55-1.02); GLOMERULAR FILTRATION RATE > 60.0 (>60); URIC ACID 5.3 MG/DL (2.6-6.0)
--- NOTE | 2017-01-22 09:20 | DS.PDOC ---
Discharge Summary General Date of Admission Jan 16, 2017 at 19:40 Date of Discharge 01/22/2017 Attending Physician: Gaetano Briceño DO Discharge Summary PROCEDURES PERFORMED DURING STAY: primary . ADMITTING DIAGNOSES: 1. IUP @ 34.5 weeks gestation. 2. Preeclampsia. 3. HELLP. DISCHARGE DIAGNOSES: 1. Day 3 postoperative. 2. Preeclampsia resolving. 3. HELLP resolved. COMPLICATIONS/CHIEF COMPLAINT: Preclampsia, HELLP. HISTORY OF PRESENT ILLNESS: Patient is a 26 year old female who is a who was 34.6 weeks gestation. She was sent to L&D to rule out preeclampsia and/ or HELLP due to elevated liver enzymes and low platelets and complaints of left upper quadrant pain. After consultation from the Center that patient was induced. After misoprostol, a gottlieb bulb, and Pitocin the patient progressed to 5 cm, had a maternal temperature, and tachycardia was noted. With patient being remote from delivery the decision was made to do a primary section. Since delivery she has not had a fever, her platelets have decreased, and her liver enzymes have decreased. 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 DISCHARGE MEDICATIONS: Please see below. Motrin OTC. Percocet sent from office. ALLERGIES: Please see below. PHYSICAL EXAMINATION ON DISCHARGE: VITAL SIGNS: Please see below. RESPIRATORY EXAMINATION: Regular rate and no use of accessory muscles. ABDOMINAL EXAMINATION: Low transverse incision is approximated. No drainage present. Steri strips in place. PERINEUM: lochia scant dark red EXTREMITIES: Generalized edema with no pitting edema in lower extremities. LABORATORY DATA: Please see below. ACTIVITY: As tolerated. DIET: Regular. DISCHARGE INSTRUCTIONS: 1. Follow up in office in 2 weeks and 6 weeks . 2. Reviewed s/sx of mastitis, endometritis, infection at the incision site, hemorrhage, DVT, pulmonary embolism, pelvic rest, care of incision site, and pain management. 3. Encouraged patient to call with any of the above symptoms and to call with any symptoms of preeclampsia. DISCHARGE CONDITION: Stable. Vital Signs/I&Os Vital Signs Date Time Temp Pulse Resp B/P Pulse Ox O2 Delivery O2 Flow Rate FiO2 01/22/17 06:49 18 01/22/17 06:13 98.4 56 115/57 01/21/17 22:45 99 Room Air I&O- Last 24 Hours up to 6 AM 01/22/17 06:00 Intake Total 480 ml Output Total 1100 ml Balance -620 ml Laboratory Data Labs 24H Laboratory Tests 2 01/22/17 06:46: Creatinine 0.51L, Aspartate Amino Transf (AST/SGOT) 49H, Alanine Aminotransferase (ALT/SGPT) 147H, Lactate Dehydrogenase 213, Total Bilirubin 0.3 , Uric Acid 5.3, Glomerular Filtration Rate > 60.0 CBC/BMP Laboratory Tests 01/22/17 06:46 Aspartate Amino Transf (AST/SGOT) 49 H, Alanine Aminotransferase (ALT/SGPT) 147 H, Lactate Dehydrogenase 213, Total Bilirubin 0.3, Uric Acid 5.3, Red Blood Count 3.54 L, Mean Corpuscular Volume 94.1, Mean Corpuscular Hemoglobin 32.7, Mean Corpuscular Hemoglobin Concent 34.7, Red Cell Distribution Width 12.9 Microbiology Microbiology 01/16/17 Group B Streptococcus Screen (HAYDER) - Final, Complete Discharge Medications Scheduled Multivitamins/ ( 27-0.8 mg) 1 Tab Tab 1 TAB PO DAILY (Reported ) Allergies Coded Allergies: No Known Allergies (Unverified , 01/19/17) DENILSON BARBA CNM Jan 22, 2017 09:20
[2017-01-22] MEDS ORDERED: LORT5TAB PO (09:36)
[2017-01-22] MEDS ORDERED: IBUP-1114 PO (09:36)
[2017-01-22] MEDS: PRENATAL VITAMIN TAB PO SCH (10:04)
[2017-01-22] MEDS: DOCUSATE SODIUM 100 MG CAP PO SCH (10:04)
== END 2017-01-22 13:25 | disposition home or self-care (01) | DRG 540 ==
LOC: M LDO 10:46 → OBSVTOIN 19:40 → M PED 19:40 → M OBS 01-17 17:42 → M LDI 01-18 20:21 → M OBS 01-21 12:36
PROVIDERS: ADMIT Obstetrics & Gynecology; ATTEND Obstetrics & Gynecology
PROC: 3E033VJ Introduction of Other Hormone into Peripheral Vein, Percutaneous Approach (ICD-10-PCS; 2017-01-16)
PROC: 3E0P7GC Introduction of Other Therapeutic Substance into Female Reproductive, Via Natural or Artificial Opening (ICD-10-PCS; 2017-01-19)
PROC: 10D00Z1 Extraction of Products of Conception, Low, Open Approach (ICD-10-PCS; principal; 2017-01-19 21:02)
DX: O14.13 Severe pre-eclampsia, third trimester (principal); D69.6 Thrombocytopenia, unspecified; O60.14X0 Preterm labor third trimester with preterm delivery third trimester, not applicable or unspecified; O99.12 Other diseases of the blood and blood-forming organs and certain disorders involving the immune mechanism complicating childbirth; Z37.0 Single live birth; Z3A.34 34 weeks gestation of pregnancy; O62.0 Primary inadequate contractions; O69.82X0 Labor and delivery complicated by other cord entanglement, without compression, not applicable or unspecified; O76 Abnormality in fetal heart rate and rhythm complicating labor and delivery; R50.9 Fever, unspecified; Z91.040 Latex allergy status

== ENCOUNTER 2017-01-25 18:14 | Emergency (ER) | payer OTHER ==
[~2017-01-25] VITALS: Ht 162.6 cm; Wt 93.4 kg
[~2017-01-25 18:14] MED LIST changes: +IBUP-1114 PO; +LORT5TAB PO
[2017-01-25] MEDS ORDERED: IPRATROPIUM 0.5MG/ALBUTEROL 2.5MG INH SOL UD 3ML (DUONEB)(J7620) NEB ONE (19:00)
[2017-01-25] MEDS ORDERED: ALBUTEROL SULFATE 2.5 MG/0.5 ML INH NEB SOLN INH ONE (19:00)
[2017-01-25] MEDS ORDERED: ACETAMINOPHEN TAB 650MG DOSE (2X325MG) PO ONE (19:15)
[2017-01-25 19:56] LABS: BASO % 0.5 % (0.0-1.0); EOS # 0.3 K/mm3 (0.0-0.50); EOS % 3.6 % (0.0-3.0); LARGE UNSTAINED CELL # 0.1 K/mm3 (0.0-0.4); LARGE UNSTAINED CELL % 1.3 % (0.0-4.0); LYMPH # 1.8 K/mm3 (1.5-6.5); MEAN CORPUSCULAR HEMOGLOBIN 32.9 pg (27.0-33.0); MEAN CORPUSCULAR HGB CONC 34.4 g/dl (32.0-36.5); MEAN CORPUSCULAR VOLUME 95.5 fl (80.0-96.0); MONO # 0.4 K/mm3 (0.0-0.8); MONO % 5.3 % (0.0-5.0); NEUTROPHILS # 5.7 K/mm3 (1.8-7.7); NEUTROPHILS % 68.3 % (36.0-66.0); PLATELET COUNT, AUTOMATED 237 k/mm3 (150-450); RED CELL DISTRIBUTION WIDTH 12.6 % (11.5-14.5); WHITE BLOOD COUNT 8.3 K/mm3 (4.0-10.0)
[2017-01-25 20:08] LABS: ALBUMIN 2.8 GM/DL (3.2-5.2); ALKALINE PHOSPHATASE 104 U/L (45-117); ALT/SGPT 86 U/L (12-78); AMYLASE 56 U/L (25-115); ANION GAP 8 MEQ/L (8-16); AST/SGOT 24 U/L (15-37); BILIRUBIN,TOTAL 0.3 MG/DL (0.2-1.0); BLOOD UREA NITROGEN 10 MG/DL (7-18); CALCIUM LEVEL 8.6 MG/DL (8.5-10.1); CARBON DIOXIDE LEVEL 24 MEQ/L (21-32); CHLORIDE LEVEL 111 MEQ/L (98-107); CREATININE FOR GFR 0.71 MG/DL (0.55-1.02); GLOMERULAR FILTRATION RATE > 60.0 (>60); GLUCOSE, FASTING 94 MG/DL (70-105); MAGNESIUM LEVEL 1.9 MG/DL (1.8-2.4); SODIUM LEVEL 143 MEQ/L (136-145); TOTAL PROTEIN 6.3 GM/DL (6.4-8.2)
[2017-01-25] MEDS ORDERED: ISOVUE-370 76% 100ML VIAL (Q9967) As Ordered ONE (20:24)
--- NOTE | 2017-01-25 21:30 | REPUSA ---
CLINICAL HISTORY: chest pain TECHNIQUE: CT chest with IV contrast. COMPARISON: No pertinent prior studies are available at this time. CT CHEST WITH CONTRAST: Pulmonary arteries: Patent, without emboli. Lungs: No pneumothorax, infiltrate, masses or effusion. Heart: Normal size. No significant effusion. Aorta: Normal caliber, without aneurysm or dissection. Mediastinum and renee: No lymphadenopathy. Bony thorax: No acute findings. Limited upper abdomen: No acute findings. IMPRESSION: No evidence of pulmonary embolism. No acute thoracic process.
[2017-01-25 22:03] VITALS: BP 115/70
--- NOTE | 2017-01-26 08:54 | REP ---
Chest pain. COMPARISON: 07/09/2014 FINDINGS: The superior mediastinal structures are midline. The cardiac silhouette is unremarkable in size, shape, and position. The diaphragmatic surfaces of the lungs are regular, and the costophrenic angles are clear. The pulmonary major are clear. The imaged osseous structures are intact. IMPRESSION: There is no acute cardiopulmonary disease. Signed by Cole Mo DO 01/26/2017 09:26 A
--- NOTE | 2017-01-26 09:22 | ECGEPIP ---
Stationary ECG Study [facility] - ED Test Date: 2017-01-25 Pat Name: VICTORIANO RAMIREZ Department: Room: - Gender: F Benefits Sales Consultant: lizbeth : 1990 Requested By: LUPE Guillen Order Number: [id number] Reading MD: Toña Kumar Measurements Intervals [place] Rate: 59 P: 10 WV: 145 QRS: -7 QRSD: 101 T: 5 QT: 391 QTc: 389 Interpretive Statements SINUS BRADYCARDIA WITH SINUS ARRHYTHMIA LOW QRS VOLTAGE IN PRECORDIAL LEADS POSSIBLE ANTERIOR MYOCARDIAL INFARCTION, OF INDETERMINATE AGE NO PRIOR FOR COMPARISON Electronically Signed On 01-26-2017 9:21:52 EDT by Toña Kumar
== END 2017-01-25 22:04 | disposition home or self-care (01) ==
LOC: M ED 19:39
DX: R07.9 Chest pain, unspecified (principal); Z87.891 Personal history of nicotine dependence; E28.2 Polycystic ovarian syndrome; Z87.59 Personal history of other complications of pregnancy, childbirth and the puerperium; Z79.899 Other long term (current) drug therapy
CPT/HCPCS: 36415; 71020; 71275; 80053; 82150; 82550; 82553; 83690; 83735; 85025; 93005; 94640; 99284; Q9967

== ENCOUNTER → 2017-05-12 | Outpatient (REF) | payer OTHER ==
[2017-05-12 19:57] LABS: HCG, SERUM QUANTITATIVE 59873 MIU/ML
[2017-05-12 20:22] LABS: MEAN CORPUSCULAR HEMOGLOBIN 31.5 pg (27.0-33.0); MEAN CORPUSCULAR HGB CONC 34.2 g/dl (32.0-36.5); MEAN CORPUSCULAR VOLUME 92.2 fl (80.0-96.0); RED CELL DISTRIBUTION WIDTH 12.6 % (11.5-14.5); WHITE BLOOD COUNT 6.6 K/mm3 (4.0-10.0)
== END ==
LOC: M LAB REF 18:10
PROVIDERS: ATTEND Obstetrics & Gynecology
DX: O36.80X0 Pregnancy with inconclusive fetal viability, not applicable or unspecified (principal); Z3A.00 Weeks of gestation of pregnancy not specified

== ENCOUNTER → 2017-09-01 | Outpatient (REF) | payer OTHER ==
[2017-09-01 18:54] LABS: ALT/SGPT 28 U/L (12-78); AST/SGOT 17 U/L (7-37); BILIRUBIN,TOTAL 0.3 MG/DL (0.2-1.0); CREATININE FOR GFR 0.52 MG/DL (0.55-1.02); GLOMERULAR FILTRATION RATE > 60.0 (>60); URIC ACID 4.2 MG/DL (2.6-6.0)
[2017-09-01 19:05] LABS: MEAN CORPUSCULAR HEMOGLOBIN 31.1 pg (27.0-33.0); MEAN CORPUSCULAR HGB CONC 34.3 g/dl (32.0-36.5); MEAN CORPUSCULAR VOLUME 90.7 fl (80.0-96.0); PLATELET COUNT, AUTOMATED 168 10^3/uL (150-450); RED CELL DISTRIBUTION WIDTH 13.1 % (11.5-14.5)
== END ==
LOC: M LAB REF 16:44
PROVIDERS: ATTEND Advanced Practice Midwife
DX: Z34.82 Encounter for supervision of other normal pregnancy, second trimester (principal)

== ENCOUNTER → 2017-09-02 | Outpatient (REF) | payer OTHER | LOC: M LAB REF 15:26 | PROVIDERS: ATTEND Advanced Practice Midwife | DX: Z34.82 Encounter for supervision of other normal pregnancy, second trimester (principal); Z36.89 Encounter for other specified antenatal screening ==

== ENCOUNTER 2017-10-02 17:18 | Emergency (ER) | payer OTHER ==
[~2017-10-02] VITALS: Ht 162.6 cm; Wt 101.6 kg
[2017-10-02] MEDS ORDERED: SUDATAB15 PO (17:46)
[2017-10-02] MEDS ORDERED: SALI0.6523 (18:30)
[2017-10-02] MEDS ORDERED: AUGM875T28 PO (18:30)
[2017-10-02 18:40] VITALS: BP 123/80
== END 2017-10-02 18:42 | disposition home or self-care (01) ==
LOC: M ED 17:18
DX: J31.0 Chronic rhinitis (principal); Z3A.28 28 weeks gestation of pregnancy; Z87.891 Personal history of nicotine dependence; Z79.899 Other long term (current) drug therapy

== ENCOUNTER → 2017-10-16 | Outpatient (CLI) | payer OTHER ==
[2017-10-16 11:34] LABS: HEMATOCRIT 36.8 % (36.0-47.0); HEMOGLOBIN 12.7 g/dl (12.0-16.0); MEAN CORPUSCULAR HEMOGLOBIN 31.4 pg (27.0-33.0); MEAN CORPUSCULAR HGB CONC 34.5 g/dl (32.0-36.5); MEAN CORPUSCULAR VOLUME 91.1 fl (80.0-96.0); PLATELET COUNT, AUTOMATED 168 10^3/uL (150-450); RED BLOOD COUNT 4.04 10^6/uL (4.00-5.40); RED CELL DISTRIBUTION WIDTH 13.2 % (11.5-14.5); WHITE BLOOD COUNT 7.1 10^3/uL (4.0-10.0)
[2017-10-16 11:47] LABS: GLUCOSE CHALLENGE TEST 1 HOUR 149 MG/DL (LESS THAN 140)
== END ==
LOC: M LAB 10:10
DX: Z36.89 Encounter for other specified antenatal screening (principal); Z3A.00 Weeks of gestation of pregnancy not specified
CPT/HCPCS: 82950

== ENCOUNTER → 2017-11-13 | Outpatient (REF) | payer OTHER ==
[2017-11-13 14:10] LABS: HEMATOCRIT 38.6 % (36.0-47.0); HEMOGLOBIN 13.2 g/dl (12.0-16.0); MEAN CORPUSCULAR HEMOGLOBIN 30.8 pg (27.0-33.0); MEAN CORPUSCULAR HGB CONC 34.2 g/dl (32.0-36.5); PLATELET COUNT, AUTOMATED 126 10^3/uL (150-450); RED BLOOD COUNT 4.29 10^6/uL (4.00-5.40); RED CELL DISTRIBUTION WIDTH 13.2 % (11.5-14.5); WHITE BLOOD COUNT 5.7 10^3/uL (4.0-10.0)
[2017-11-13 15:51] LABS: ALT/SGPT 34 U/L (12-78); AST/SGOT 22 U/L (7-37); BILIRUBIN,TOTAL 0.3 MG/DL (0.2-1.0); GLOMERULAR FILTRATION RATE > 60.0 (>60); LDH LACTATE DEHYDROGENASE 146 U/L (84-246); URIC ACID 4.5 MG/DL (2.6-6.0)
== END ==
LOC: M LAB REF 13:01
DX: O09.293 Supervision of pregnancy with other poor reproductive or obstetric history, third trimester (principal); R51 Headache

== ENCOUNTER → 2017-11-19 | Outpatient (REF) | payer OTHER | LOC: M LAB REF 16:34 | DX: O09.823 Supervision of pregnancy with history of in utero procedure during previous pregnancy, third trimester (principal) ==

== ENCOUNTER 2017-12-18 05:07 | Inpatient (IN) | payer OTHER ==
[2017-12-18] MEDS ORDERED: LR 1,000 ML IV ×2 (06:00→08:50)
[2017-12-18] MEDS: LR 1,000 ML IV ×4 (06:00→16:56)
[2017-12-18 06:30] LABS: BASO % 0.5 % (0.0-1.0); EOS # 0.1 10^3/uL (0.0-0.50); EOS % 1.5 % (0.0-3.0); HEMATOCRIT 38.3 % (36.0-47.0); HEMOGLOBIN 13.7 g/dl (12.0-16.0); IMMATURE GRANULOCYTE % 0.5 % (0-3.0); LYMPH # 2.2 10^3/uL (1.5-6.5); MEAN CORPUSCULAR HEMOGLOBIN 31.2 pg (27.0-33.0); MEAN CORPUSCULAR HGB CONC 35.8 g/dl (32.0-36.5); MEAN CORPUSCULAR VOLUME 87.2 fl (80.0-96.0); MONO % 11.1 % (0.0-5.0); NEUTROPHILS # 5.4 10^3/uL (1.8-7.7); NEUTROPHILS % 61.4 % (36.0-66.0); PLATELET COUNT, AUTOMATED 165 10^3/uL (150-450); RED BLOOD COUNT 4.39 10^6/uL (4.00-5.40); RED CELL DISTRIBUTION WIDTH 13.4 % (11.5-14.5); WHITE BLOOD COUNT 8.8 10^3/uL (4.0-10.0)
[2017-12-18] MEDS ORDERED: MORPHINE PRES-FREE INJ 10 MG/10 ML VIAL (J2274) As Ordered (07:38)
[2017-12-18] MEDS ORDERED: OXYTOCIN INJ 10 UNITS/ML VIAL (J2590) As Ordered ×2 (07:39)
[2017-12-18] MEDS: BICITRA 30ML SOLN UDC PO (07:41)
[2017-12-18] MEDS ORDERED: KETOROLAC 60 MG/2 ML VIAL (J1885) As Ordered (08:19)
[2017-12-18] MEDS ORDERED: PHENYLephrine HCL 500 MCG/5 ML (100MCG/ML) SYRINGE (J2370) As Ordered (08:19)
[2017-12-18] MEDS ORDERED: ePHEDrine SULFATE 25 MG/5 ML(5MG/ML) SYRINGE As Ordered (08:20)
[2017-12-18] MEDS ORDERED: ATROPINE SULF 0.4 MG/ML 1ML VIAL (J0461) As Ordered (08:21)
[2017-12-18 08:23] LABS: CORD GAS ABE V -0.8; CORD GAS HCO3 V 22.3 MEQ/L; CORD GAS O2 SAT V 86.9 %; CORD GAS PH V 7.448 UNITS; CORD GAS PO2 V 37.9 mmHg; CORD GAS SBC V 23.5 MEQ/L; CORD GAS TCO2 V 23.3 MEQ/L
[2017-12-18 08:24] LABS: CORD GAS ABE A 0.5; CORD GAS HCO3 A 26.4 MEQ/L; CORD GAS PCO2 A 46.9 mmHg; CORD GAS PH A 7.368 UNITS; CORD GAS PO2 A 17.2 mmHg; CORD GAS SBC A 23.5 MEQ/L; CORD GAS TCO2 A 27.8 MEQ/L
[2017-12-18 08:48] LABS: ALT/SGPT 30 U/L (12-78); AST/SGOT 20 U/L (7-37); BILIRUBIN,TOTAL 0.3 MG/DL (0.2-1.0); GLOMERULAR FILTRATION RATE > 60.0 (>60); LDH LACTATE DEHYDROGENASE 155 U/L (84-246); URIC ACID 4.7 MG/DL (2.6-6.0)
[2017-12-18] MEDS ORDERED: NORCO, ANEXSIA 5/325MG TABLET (HYDROcodone/ACETAMINOPHEN) PO ×2 (09:00)
[2017-12-18] MEDS ORDERED: ONDANSETRON 4MG/2ML VIAL (J2405) IV ×2 (09:00→09:45)
[2017-12-18] MEDS ORDERED: DOCUSATE SODIUM 100 MG CAP PO (09:00)
[2017-12-18] MEDS ORDERED: RHOGAM 300 MCG (1500 IU) INJ (J2790) IM (09:00)
[2017-12-18] MEDS ORDERED: MOM 30ML SUSPENSION UDC PO (09:00)
[2017-12-18] MEDS ORDERED: METHYLERGONOVINE MALEATE 0.2 MG TAB PO (09:00)
[2017-12-18] MEDS ORDERED: MEASLES,MUMPS,RUBELLA VACCINE INJ (MMR-II) (90707) SC (09:00)
[2017-12-18] MEDS ORDERED: PRENATAL VITAMINS CHEWABLE TABLET PO (09:00)
[2017-12-18] MEDS ORDERED: METOCLOPRAMIDE INJ 10MG/2ML VIAL (J2765) IV (09:45)
[2017-12-18] MEDS ORDERED: fentaNYL 100 MCG/2 ML INJECTION (J3010) IV (09:45)
[2017-12-18] MEDS ORDERED: PERCOCET 5MG/325MG TAB PO (09:45)
[2017-12-18] MEDS ORDERED: MEPERIDINE INJ 25 MG/ML VIAL (J2175) IV (09:45)
[2017-12-18] MEDS: DOCUSATE SODIUM 100 MG CAP PO ×2 (10:48→21:44)
[2017-12-18] MEDS: NORCO, ANEXSIA 5/325MG TABLET (HYDROcodone/ACETAMINOPHEN) PO ×2 (10:49→23:27)
[2017-12-18] MEDS ORDERED: KETOROLAC 30 MG/ML VIAL (J1885) IV (14:00)
[2017-12-18] MEDS: IBUPROFEN 800 MG TAB PO ×2 (16:16→23:27)
[2017-12-19] MEDS: NORCO, ANEXSIA 5/325MG TABLET (HYDROcodone/ACETAMINOPHEN) PO ×4 (06:02→22:33)
[2017-12-19] MEDS: IBUPROFEN 800 MG TAB PO ×3 (08:03→23:49)
[2017-12-19] MEDS: DOCUSATE SODIUM 100 MG CAP PO ×2 (08:03→20:09)
[2017-12-19] MEDS ORDERED: IBUPROFEN 800 MG TAB PO (16:00)
[2017-12-20] MEDS: NORCO, ANEXSIA 5/325MG TABLET (HYDROcodone/ACETAMINOPHEN) PO (04:19)
[2017-12-20] MEDS: DOCUSATE SODIUM 100 MG CAP PO (08:38)
[2017-12-20] MEDS: IBUPROFEN 800 MG TAB PO (08:38)
[2017-12-20] MEDS ORDERED: ADACEL/BOOSTRIX VACCINE (DIPHTH/PERTUSS/ACELL/TETANUS)0.5ML SYR (90715) IM (10:45)
== END 2017-12-20 12:10 | disposition home or self-care (01) | DRG 540 ==
LOC: M LDI 05:07 → M OBS 10:38
PROVIDERS: Obstetrics & Gynecology
PROC: 10D00Z1 Extraction of Products of Conception, Low, Open Approach (ICD-10-PCS; principal; 2017-12-18 07:49)
DX: O34.211 Maternal care for low transverse scar from previous cesarean delivery (principal); Z37.0 Single live birth; Z3A.39 39 weeks gestation of pregnancy; E28.2 Polycystic ovarian syndrome; O99.284 Endocrine, nutritional and metabolic diseases complicating childbirth; Z87.891 Personal history of nicotine dependence

== ENCOUNTER → 2019-05-31 | Outpatient (CLI) | payer OTHER ==
[~2019-05-31] MED LIST changes: +AUGM875T28 PO; +MOTR200T44 PO; +NORC1TAB7 PO; +SALI0.6528; +SUDATAB15 PO
--- NOTE | 2019-05-31 17:50 | REP ---
Lumbar spine series: Six views. History: Acute low back pain. Without sciatica. Findings: Lumbar vertebral body heights are preserved. Alignment is normal. Disc spaces are maintained. Pedicles and posterior elements are intact. There is no evidence of spondylolysis or spondylolisthesis. Psoas margins are symmetric. Sacrum and SI joints are unremarkable. Impression: Negative lumbar spine radiographs. Electronically Signed by Vaibhav Brown MD 05/31/2019 05:41 P
== END ==
LOC: M LRY 17:05
PROVIDERS: ATTEND Nurse Practitioner Family
DX: M54.5 Low back pain (principal)

== ENCOUNTER → 2019-11-23 | Outpatient (CLI) | payer OTHER ==
--- NOTE | 2019-11-23 09:16 | REP ---
Clinical: Left upper quadrant abdominal pain. Technique: Upright view of the chest with supine and upright views of the abdomen and pelvis. Findings: Frontal upright view of the chest demonstrates no acute cardiopulmonary process or free air below the diaphragm to suspect pneumoperitoneum. Supine and upright views of the abdomen and pelvis demonstrate nonspecific bowel gas pattern without obstruction or perforation. No organomegaly. No abnormal calcifications. Skeletal structures normal for age. Impression: Nonspecific bowel gas pattern. Electronically Signed by Julian Estes MD 11/23/2019 09:07 A
== END ==
LOC: M LRY 08:33
PROVIDERS: ATTEND Family Medicine
DX: R10.12 Left upper quadrant pain (principal)

== ENCOUNTER → 2019-11-23 | Outpatient (REF) | payer OTHER ==
[2019-11-23 12:01] LABS: BASO % 0.6 % (0.0-1.0); EOS # 0.2 10^3/uL (0.0-0.5); EOS % 3.6 % (0.0-3.0); HEMATOCRIT 44.8 % (36.0-47.0); HEMOGLOBIN 14.8 g/dl (12.0-15.5); LYMPH # 1.9 10^3/uL (1.5-5.0); LYMPH % 29.3 % (24.0-44.0); MEAN CORPUSCULAR HEMOGLOBIN 30.6 pg (27.0-33.0); MEAN CORPUSCULAR VOLUME 92.6 fl (80.0-96.0); MONO # 0.6 10^3/uL (0.0-0.8); MONO % 9.9 % (0.0-5.0); NEUTROPHILS # 3.6 10^3/uL (1.5-8.5); NEUTROPHILS % 56.1 % (36.0-66.0); PLATELET COUNT, AUTOMATED 171 10^3/uL (150-450); RED BLOOD COUNT 4.84 10^6/uL (4.00-5.40); WHITE BLOOD COUNT 6.5 10^3/uL (4.0-10.0)
[2019-11-23 12:18] LABS: ALBUMIN 3.7 GM/DL (3.2-5.2); ALT/SGPT 39 U/L (12-78); BILIRUBIN,TOTAL 0.4 MG/DL (0.2-1.0); BLOOD UREA NITROGEN 17 MG/DL (7-18); CARBON DIOXIDE LEVEL 29 MEQ/L (21-32); CHLORIDE LEVEL 106 MEQ/L (98-107); CREATININE FOR GFR 0.76 MG/DL (0.55-1.30); FREE T4 0.94 NG/DL (0.76-1.46); GLOMERULAR FILTRATION RATE > 60.0 (>60); GLUCOSE, FASTING 107 MG/DL (70-100); LIPASE 105 U/L (73-393); POTASSIUM SERUM 4.4 MEQ/L (3.5-5.1); SODIUM LEVEL 142 MEQ/L (136-145); TOTAL PROTEIN 6.9 GM/DL (6.4-8.2)
[2019-11-23 12:29] LABS: HCG, SERUM QUALITATIVE NEGATIVE (NEGATIVE)
[2019-11-23 12:30] LABS: HEMOGLOBIN A1c 4.8 %
== END ==
LOC: M SFHCLERA 08:18
PROVIDERS: ATTEND Family Medicine
DX: E28.2 Polycystic ovarian syndrome (principal); R10.12 Left upper quadrant pain

== ENCOUNTER → 2019-11-29 | Outpatient (REF) | payer BC | LOC: M SFHCLERA 20:01 | PROVIDERS: ATTEND Nurse Practitioner Family | DX: R53.81 Other malaise (principal) ==

== ENCOUNTER → 2020-11-14 | Outpatient (CLI) | payer MEDICAID ==
--- NOTE | 2020-11-14 13:05 | REP ---
INDICATION: SPLENOMEGALY COMPARISON: None. TECHNIQUE: Real time ruiz scale ultrasound examination using curved array transducer. FINDINGS: Spleen is relatively normal in size and measures 12.3 x 8.6 x 4.6 cm. No focal splenic lesion identified. The left kidney measures 10.1 x 3.9 x 5.8 cm without hydronephrosis or obvious abnormality. No ascites in the left upper quadrant. IMPRESSION: Normal examination to the left upper quadrant. <Electronically signed by Julian Estes > 11/14/20 [id number]
== END ==
LOC: M RAD 07:31
PROVIDERS: ATTEND Family Medicine
DX: R16.1 Splenomegaly, not elsewhere classified (principal)

== ENCOUNTER → 2021-01-29 | Outpatient (CLI) | payer OTHER ==
[2021-01-29 18:31] LABS: HEPATITIS A ANTIBODY IGM NEGATIVE (NEGATIVE); HEPATITIS B CORE ANTIBODY IGM NEGATIVE (NEGATIVE); HEPATITIS B SURFACE ANTIGEN NEGATIVE (NEGATIVE); HEPATITIS C VIRUS ABY INDEX 0.1 INDEX (<0.8); HIV 1&2 SCREEN CENTAUR NEGATIVE (NEGATIVE)
[2021-01-30 13:11] LABS: HSV TYPE I IgG SPECIFIC <0.91 index (0.00-0.90); HSV TYPE II IgG SPECIFIC 2.71 index (0.00-0.90)
== END ==
LOC: M LAB 12:23
PROVIDERS: ATTEND Nurse Practitioner Family
DX: Z11.3 Encounter for screening for infections with a predominantly sexual mode of transmission (principal); N89.8 Other specified noninflammatory disorders of vagina

== ENCOUNTER → 2021-01-29 | Outpatient (REF) | payer OTHER | LOC: M SFHCLERA 11:44 | PROVIDERS: ATTEND Nurse Practitioner Family | DX: Z11.3 Encounter for screening for infections with a predominantly sexual mode of transmission (principal) ==

== ENCOUNTER → 2021-07-27 | Outpatient (REF) | payer OTHER | LOC: M LAB REF 12:59 | PROVIDERS: ATTEND Physician Assistant | DX: J02.9 Acute pharyngitis, unspecified (principal) ==

== ENCOUNTER 2021-09-04 21:21 | Emergency (ER) | payer OTHER ==
[~2021-09-04] VITALS: Ht 162.6 cm; Wt 113.3 kg
[2021-09-04] MEDS ORDERED: ACETAMINOPHEN 325 MG TAB PO ONE (23:55)
[2021-09-05 00:54] LABS: RSV AMPLIFICATION NEGATIVE (NEGATIVE)
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
[2021-09-05 02:24] VITALS: BP 128/71
== END 2021-09-05 02:27 | disposition home or self-care (01) ==
LOC: M ED 21:21
DX: R51.9 Headache, unspecified (principal); R50.9 Fever, unspecified; U07.1 COVID-19; Z87.891 Personal history of nicotine dependence

== ENCOUNTER 2022-01-25 16:16 | Emergency (ER) | payer OTHER ==
[~2022-01-25] VITALS: Ht 162.6 cm; Wt 109.1 kg
[2022-01-25 16:16] VITALS: BP 117/68
[~2022-01-25 16:16] MED LIST changes: +KETO10TAB PO
[2022-01-25] MEDS ORDERED: ACET500P3 PO (16:27)
[2022-01-25] MEDS ORDERED: ONDANSETRON 4MG/2ML VIAL IV ONE (18:10)
[2022-01-25] MEDS ORDERED: methocarbamoL 750 MG TAB PO ONE (18:10)
[2022-01-25] MEDS ORDERED: NS 1,000 ML IV ONE (18:10)
[2022-01-25 18:48] LABS: BASO % 0.7 % (0.0-1.0); EOS # 0.2 10^3/uL (0.0-0.5); EOS % 3.2 % (0.0-3.0); HEMATOCRIT 40.3 % (36.0-47.0); HEMOGLOBIN 13.5 g/dl (12.0-15.5); LYMPH # 1.5 10^3/uL (1.5-5.0); LYMPH % 26.3 % (24.0-44.0); MEAN CORPUSCULAR HEMOGLOBIN 30.8 pg (27.0-33.0); MEAN CORPUSCULAR HGB CONC 33.5 g/dl (32.0-36.5); MONO # 0.8 10^3/uL (0.0-0.8); MONO % 14.1 % (2.0-8.0); NEUTROPHILS # 3.1 10^3/uL (1.5-8.5); NEUTROPHILS % 55.3 % (36.0-66.0); PLATELET COUNT, AUTOMATED 163 10^3/uL (150-450); RED BLOOD COUNT 4.38 10^6/uL (4.00-5.40); WHITE BLOOD COUNT 5.7 10^3/uL (4.0-10.0)
[2022-01-25 19:16] LABS: BLOOD UREA NITROGEN 8 MG/DL (7-18); CALCIUM LEVEL 8.6 MG/DL (8.5-10.1); CARBON DIOXIDE LEVEL 28 MEQ/L (21-32); CHLORIDE LEVEL 109 MEQ/L (98-107); CREATININE FOR GFR 0.73 MG/DL (0.55-1.30); FREE T4 0.81 NG/DL (0.76-1.46); GLOMERULAR FILTRATION RATE > 60.0 (>60); GLUCOSE, FASTING 119 MG/DL (70-100); MAGNESIUM LEVEL 2.2 MG/DL (1.8-2.4); POTASSIUM SERUM 4.7 MEQ/L (3.5-5.1); SODIUM LEVEL 142 MEQ/L (136-145)
[2022-01-25] MEDS ORDERED: METH-1164 PO (19:54)
== END 2022-01-25 20:32 | disposition home or self-care (01) ==
LOC: M ED 16:16
DX: G44.209 Tension-type headache, unspecified, not intractable (principal); F17.210 Nicotine dependence, cigarettes, uncomplicated
CPT/HCPCS: 36415; 70450; 80048; 83735; 84439; 84443; 85025; 96361; 96374; 99284; J2405

== ENCOUNTER → 2022-02-19 | Outpatient (CLI) | payer OTHER ==
[~2022-02-19] MED LIST changes: +ACET500P3 PO; +METH-1164 PO
== END ==
LOC: M PLAIMG 06:55
PROVIDERS: ATTEND Orthopaedic Surgery Adult Reconstructive Orthopaedic Surgery
DX: S89.91XA Unspecified injury of right lower leg, initial encounter (principal); Y92.9 Unspecified place or not applicable; Y93.9 Activity, unspecified; Y99.9 Unspecified external cause status

== ENCOUNTER → 2022-07-26 | Outpatient (CLI) | payer OTHER ==
[2022-07-26 13:39] LABS: BASO # 0.1 10^3/uL (0.0-0.2); BASO % 0.9 % (0.0-1.0); EOS # 0.2 10^3/uL (0.0-0.5); EOS % 3.6 % (0.0-3.0); HEMATOCRIT 44.7 % (36.0-47.0); HEMOGLOBIN 15.1 g/dl (12.0-15.5); LYMPH # 2.2 10^3/uL (1.5-5.0); LYMPH % 35.2 % (24.0-44.0); MEAN CORPUSCULAR HEMOGLOBIN 30.4 pg (27.0-33.0); MEAN CORPUSCULAR HGB CONC 33.8 g/dl (32.0-36.5); MEAN CORPUSCULAR VOLUME 90.1 fl (80.0-96.0); MONO # 0.6 10^3/uL (0.0-0.8); MONO % 8.9 % (2.0-8.0); NEUTROPHILS # 3.3 10^3/uL (1.5-8.5); NEUTROPHILS % 51.1 % (36.0-66.0); PLATELET COUNT, AUTOMATED 187 10^3/uL (150-450); RED BLOOD COUNT 4.96 10^6/uL (4.00-5.40); WHITE BLOOD COUNT 6.4 10^3/uL (4.0-10.0)
[2022-07-26 14:17] LABS: HEMOGLOBIN A1c 5.1 %
[2022-07-26 14:46] LABS: ALBUMIN 3.8 GM/DL (3.2-5.2); ALT/SGPT 43 U/L (12-78); BILIRUBIN,TOTAL 0.4 MG/DL (0.2-1.0); BLOOD UREA NITROGEN 10 MG/DL (7-18); CALCIUM LEVEL 9.6 MG/DL (8.5-10.1); CARBON DIOXIDE LEVEL 28 MEQ/L (21-32); CHLORIDE LEVEL 105 MEQ/L (98-107); CHOLESTEROL LEVEL 229 MG/DL (<200); CHOLESTEROL RISK RATIO 5.088 (<5); CREATININE FOR GFR 0.77 MG/DL (0.55-1.30); GLOMERULAR FILTRATION RATE > 60.0 (>60); GLUCOSE, FASTING 109 MG/DL (70-100); HDL CHOLESTEROL 45 MG/DL (>40); LDL CHOLESTEROL 150 MG/DL (<100); NON-HDL-C 184 MG/DL; POTASSIUM SERUM 4.4 MEQ/L (3.5-5.1); SODIUM LEVEL 138 MEQ/L (136-145); TOTAL PROTEIN 7.4 GM/DL (6.4-8.2); TRIGLYCERIDES LEVEL 171 MG/DL (<150)
[2022-07-26 15:11] LABS: TESTOSTERONE 25 NG/DL (14-76); TOTAL 25(OH) VITAMIN D 27.9 NG/ML (30.0-100.0)
[2022-07-26 15:12] LABS: FOLLICLE STIMULATING HORMONE 6.8 mIU/mL; LUTEINIZING HORMONE 10.5 mIU/mL
== END ==
LOC: M PLALAB 11:25
PROVIDERS: ATTEND Physician Assistant
DX: E28.2 Polycystic ovarian syndrome (principal); E66.09 Other obesity due to excess calories

== ENCOUNTER → 2022-08-02 | Outpatient (CLI) | payer OTHER | LOC: M WHC 14:09 | PROVIDERS: ATTEND Physician Assistant | DX: E28.2 Polycystic ovarian syndrome (principal); Z53.8 Procedure and treatment not carried out for other reasons ==

== ENCOUNTER 2025-07-24 13:34 | Emergency (ER) | payer MEDICAID, OTHER ==
[~2025-07-24] VITALS: Ht 162.6 cm; Wt 125.3 kg
[2025-07-24 14:13] LABS: KETONE, URINE AUTO RFX NEGATIVE (NEGATIVE); LEUKOCYTE ESTERASE UR AUTO RFX NEGATIVE (NEGATIVE); MUCUS, URINE RFX SMALL (NEGATIVE); NITRITE, URINE AUTO RFX NEGATIVE (NEGATIVE); RBC, URINE AUTO RFX 0 /HPF (0-3); SQUAM EPITHELIAL CELL UR AURFX 5 /HPF (0-6); WBC, URINE AUTO RFX 0 /HPF (0-3)
[2025-07-24 14:15] LABS: PLATELET COUNT, AUTOMATED 203 10^3/uL (150-450)
[2025-07-24] MEDS: KETOROLAC 30 MG/ML 1 ML VIAL IV ONE (14:38)
[2025-07-24] MEDS: ONDANSETRON 4MG 2ML VIAL IV ONE (14:38)
[2025-07-24 14:40] LABS: ALT/SGPT 31 U/L (7.0-40); AST/SGOT 27 U/L (<34); CALCIUM LEVEL 9.0 MG/DL (8.5-10.1); CARBON DIOXIDE LEVEL 27 MMOL/L (20-31); CHLORIDE LEVEL 105 MMOL/L (98-107); CREATININE FOR GFR 0.78 MG/DL (0.55-1.30); GLOMERULAR FILTRATION RATE > 90.0 (>60); POTASSIUM SERUM 4.3 MMOL/L (3.5-5.1); SODIUM LEVEL 141 MMOL/L (136-145)
[2025-07-24] MEDS ORDERED: ONDA-282 PO (16:29)
[2025-07-24] MEDS ORDERED: KETO-204 PO (16:29)
[2025-07-24 17:10] VITALS: BP 104/57; TEMP 97.6; O2SAT 98
== END 2025-07-24 17:16 | disposition home or self-care (01) ==
LOC: M ED 13:34
DX: R10.9 Unspecified abdominal pain (principal); Z79.2 Long term (current) use of antibiotics; Z79.899 Other long term (current) drug therapy
CPT/HCPCS: 76705; 80048; 80076; 81001; 85027; 96374; 99284; J1885; J2405